=== PATIENT | male | born 1965 | race Caucasian/White ===

== ENCOUNTER 2017-03-15 16:48 | Observation (INO) | payer BC ==
[2017-03-15] MEDS ORDERED: Lopressor 25MG Tab PO ONE (16:56)
[2017-03-15] MEDS ORDERED: NITRO-BID 2% UD PACKETS TOP ONE (16:56)
[2017-03-15] MEDS ORDERED: BABY ASPIRIN 81 MG CHEW PO ONE (16:56)
[2017-03-15] MEDS ORDERED: BABY ASPIRIN 81 MG CHEW ONE (16:57)
[2017-03-15] MEDS ORDERED: Lopressor 25MG Tab ONE (16:57)
[2017-03-15] MEDS ORDERED: NITRO-BID 2% UD PACKETS ONE (16:58)
[2017-03-15] MEDS ORDERED: Sodium Chloride 0.9% 1000 ML 1,000 ML IV SCH (17:00)
--- NOTE | 2017-03-15 17:03 | ERPHSYRPT ---
- History of Present Illness Time Seen by Provider: 03/15/17 16:52 Historian: patient Exam Limitations: no limitations Physician History: CP onset at work earlier this afternoon- sitting at time; lasted 45 minutes; no prior hx; ccrampy in nature; mid substernal L to R; no SOB; no n&V; no diaphoresis; no prior hx of trauma; no fever or cough; pain 11/12- took an aleve and went away Earlier this week he had a touch of a GI bug with N,V, and D since resolved; Timing/Duration: today, hour(s) (2), sudden, improved Activities at Onset: rest (sitting at desk) Quality: cramping Location: substernal Chest Pain Radiation: no radiation Severity of Pain-Max: moderate (11/12) Severity of Pain-Current: none Modifying Factors: Improves With: other (belching) Associated Symptoms: denies symptoms Prior Chest Pain/Cardiac Workup: no prior chest pain Nitro Today/Relief: no nitro taken today, provided by ED Aspirin Treatment Today: no aspirin today, provided by ED Allergies/Adverse Reactions: No Known Drug Allergies Allergy (Unverified 03/15/17 17:08) - Review of Systems Constitutional: No Symptoms Eyes: No Symptoms Ears, Nose, & Throat: No Symptoms Respiratory: No Cough, No Dyspnea, No Wheezing Cardiac: Chest Pain, No Edema, No Palpitations, No Syncope Abdominal/Gastrointestinal: No Abdominal Pain, No Nausea, No Vomiting, No Diarrhea Genitourinary Symptoms: No Symptoms Musculoskeletal: Arthralgias (left shoulder), No Fall, No Injury Skin: No Symptoms Neurological: Dizziness (light headed), No Focal Weakness, No Headache, No Sensory Changes Psychological: No Symptoms Endocrine: No Symptoms Hematologic/Lymphatic: No Symptoms Immunological/Allergic: No Symptoms - Past Medical History Pertinent Past Medical History: Yes Cardiac History: Hypertension (not treated) GI Medical History: Other (reflux) - Past Surgical History Past Surgical History: No - Social History Smoking Status: Never smoker Exposure to second hand smoke: No Alcohol Use: Socially Drug Use: none Patient Lives Alone: No Significant Family History: heart disease - Nursing Vital Signs Nursing Vital Signs: Initial Vital Signs Temperature 97.6 F 03/15/17 16:49 Pulse Rate 65 03/15/17 16:49 Respiratory Rate 16 03/15/17 16:49 Blood Pressure 161/101 03/15/17 16:49 O2 Sat by Pulse Oximetry 95 03/15/17 16:49 Pain Scale Pain Intensity 0 - Physical Exam General Appearance: mild distress, alert Eye Exam: PERRL/EOMI, eyes nml inspection Ears, Nose, Throat Exam: normal ENT inspection, TMs normal, pharynx normal, moist mucous membranes Neck Exam: normal inspection, non-tender, supple, full range of motion, No meningismus, No carotid bruit, No JVD Respiratory Exam: normal breath sounds, lungs clear, airway intact, No chest tenderness, No respiratory distress Cardiovascular Exam: regular rate/rhythm, normal heart sounds, normal peripheral pulses, capillary refill <2 sec, No murmur, No edema Gastrointestinal/Abdomen Exam: soft, normal bowel sounds, No tenderness, No guarding, No pulsatile mass, No rebound, No organomegaly Rectal Exam: deferred Back Exam: normal inspection, normal range of motion, No CVA tenderness, No vertebral tenderness, No rash Extremity Exam: normal inspection, normal range of motion, No jessica's sign, No pedal edema Neurologic Exam: alert, oriented x 3, cooperative, data typist II-XII nml as tested, normal mood/affect, nml cerebellar function, nml station & gait, sensation nml Skin Exam: normal color, warm, dry, No rash, No cyanosis SpO2 Interpretation: normal SpO2: 98 Oxygen Delivery: Room Air - Course Nursing assessment & vital signs reviewed: Yes EKG Interpreted by Me: RATE (61), Sinus Rhythm, Right [place] Deviation, NORMAL INTERVALS, Right Bundle Branch Block (ICRBBB), Non-specific ST Changes Rhythm Strip: Rate (66), Normal Sinus Rhythm - Radiology Exams Chest X-ray Interpretation: Interpreted by me, Negative, No Pneumonia, No Pneumothorax , Nml Heart Size, No Infiltrates, Nml Mediastinum Ordered Tests: Active Orders 24 hr Category Date Time Status Bedrest with BRP/BSC ROUTINE Activity 03/15/17 17:52 Ordered Admission/Status Order ROUTINE Care 03/15/17 17:52 Ordered Call Admit Doctor for Orders ROUTINE Care 03/15/17 17:52 Ordered Seo Associate STAT Care 03/15/17 16:57 Active Code Status Order ROUTINE Care 03/15/17 17:52 Ordered EKG-ER Only STAT Care 03/15/17 16:56 Active IV Care Q6H Care 03/15/17 17:52 Ordered IV Insertion STAT Care 03/15/17 16:56 Active Implement Chest Pain Pathway ROUTINE Care 03/15/17 17:52 Ordered Pulse Oximetry (ED) STAT Care 03/15/17 16:56 Active Re-Check Vital Signs STAT Care 03/15/17 16:56 Completed Rubens Tariq, Apply ROUTINE Care 03/15/17 17:52 Ordered Telemetry ROUTINE Care 03/15/17 17:52 Ordered Weight,Daily 0600 Care 03/15/17 17:52 Ordered Cardiac Diet Diet 03/15/17 Dinner Ordered CHEST 1 VIEW (PORTABLE) Stat Exams 03/15/17 16:56 Taken CBC W DIFF Stat Lab 03/15/17 17:00 Completed CMP Stat Lab 03/15/17 17:00 Completed LIPID PROFILE AM.LAB Lab 03/16/17 04:00 Ordered PROTIME WITH INR Stat Lab 03/15/17 17:00 Completed TROPONIN Q3H Lab 03/15/17 17:00 Completed TROPONIN Q3H Lab 03/15/17 20:00 Ordered TROPONIN Q3H Lab 03/15/17 23:00 Ordered TROPONIN Q3H Lab 03/16/17 02:00 Ordered TROPONIN Q3H Lab 03/16/17 05:00 Ordered EKG Q8HX2,QAMX3,PRN RT 03/15/17 17:52 Ordered Pulse Oximetry Q4H RT 03/15/17 17:52 Ordered Transfer Order Routine Transfer 03/15/17 Ordered Medication Summary Generic Name Dose Route Start Last Admin Trade Name Freq PRN Reason Stop Dose Admin Sodium Chloride 1,000 mls @ 50 mls/hr 03/15/17 17:00 03/15/17 17:09 Sodium Chloride 0.9% 1000 Ml IV 04/14/17 16:59 50 mls/hr .Q20H TALI Administration Discontinued Medications Generic Name Dose Route Start Last Admin Trade Name Freq PRN Reason Stop Dose Admin Al Hydrox/Mg Hydrox/Simethicone Confirm 03/15/17 17:15 Maalox Es 30 Ml Unit Dose Administered 03/15/17 17:16 Dose 30 ml .ROUTE .STK-MED ONE Aspirin 324 mg 03/15/17 16:56 03/15/17 17:08 Baby Aspirin 81 Mg Chew PO 03/15/17 16:57 324 mg STAT ONE Administration Aspirin Confirm 03/15/17 16:57 Baby Aspirin 81 Mg Chew Administered 03/15/17 16:58 Dose 324 mg .ROUTE .STK-MED ONE Famotidine 40 mg 03/15/17 17:10 03/15/17 17:19 Pepcid 20 Mg PO 03/15/17 17:11 40 mg STAT ONE Administration Famotidine Confirm 03/15/17 17:13 Pepcid 20 Mg Administered 03/15/17 17:14 Dose 40 mg .ROUTE .STK-MED ONE Lidocaine HCl Confirm 03/15/17 17:14 Xylocaine Hcl Viscous * Administered 03/15/17 17:15 Dose 20 ml .ROUTE .STK-MED ONE Magnesium Hydroxide 45 ml 03/15/17 17:09 03/15/17 17:18 Gi Cocktail 45 Ml (Maalox/Lidocaine) PO 03/15/17 17:10 45 ml STAT ONE Administration Metoprolol Tartrate 25 mg 03/15/17 16:56 03/15/17 17:08 Lopressor 25mg Tab PO 03/15/17 16:57 25 mg STAT ONE Administration Metoprolol Tartrate Confirm 03/15/17 16:57 Lopressor 25mg Tab Administered 03/15/17 16:58 Dose 25 mg .ROUTE .STK-MED ONE Nitroglycerin 1 gm 03/15/17 16:56 03/15/17 17:09 Nitro-Bid 2% Ud Packets TOP 03/15/17 16:57 1 gm STAT ONE Administration Nitroglycerin Confirm 03/15/17 16:58 Nitro-Bid 2% Ud Packets Administered 03/15/17 16:59 Dose 1 gm .ROUTE .STK-MED ONE Lab/Rad Data: Laboratory Result Diagrams 03/15/17 17:00 03/15/17 17:00 Laboratory Results 03/15/17 03/15/17 03/15/17 Range/Units 17:00 17:00 17:00 WBC (4.0-10.5) K/mm3 RBC (4.1-5.6) M/mm3 Hgb (12.5-18.0) gm/dl Hct (42-50) % MCV (78-100) fl MCH (26-32) pg MCHC (32-36) g/dl RDW (11.5-14.0) % Plt Count (150-450) K/mm3 MPV (6-9.5) fl Gran % (36.0-66.0) % Lymphocytes % (24.0-44.0) % Monocytes % (0.0-12.0) % Eosinophils % (0.00-5.0) % Basophils % (0.0-0.4) % Basophils # (0-0.4) INR 1.06 (0.8-3.0) Sodium 140 (136-145) mEq/L Potassium 4.0 (3.5-5.1) mEq/L Chloride 103 (98-107) mEq/L Carbon Dioxide 28.2 (21-32) mEq/L Anion Gap 12.4 (5-15) MEQ/L BUN 12 (9-20) mg/dL Creatinine 1.03 (0.55-1.30) mg/dl Estimated GFR > 60 ML/MIN Glucose 98 (70-110) MG/DL Calcium 9.1 (8.5-10.1) mg/dL Total Bilirubin 0.60 (0.2-1.0) mg/dL AST 32 (15-37) U/L ALT 53 (12-78) U/L Alkaline Phosphatase 110 (46-116) U/L Troponin I < 0.017 (0.000-0.056) ng/ml Serum Total Protein 7.2 (6.4-8.2) gm/dL Albumin 4.4 (3.4-5.0) g/dL 03/15/17 Range/Units 17:00 WBC 4.9 (4.0-10.5) K/mm3 RBC 5.05 (4.1-5.6) M/mm3 Hgb 15.8 (12.5-18.0) gm/dl Hct 45.3 (42-50) % MCV 89.7 (78-100) fl MCH 31.3 (26-32) pg MCHC 34.9 (32-36) g/dl RDW 12.7 (11.5-14.0) % Plt Count 198 (150-450) K/mm3 MPV 11.3 H (6-9.5) fl Gran % 47.4 (36.0-66.0) % Lymphocytes % 33.8 (24.0-44.0) % Monocytes % 16.8 H (0.0-12.0) % Eosinophils % 1.6 (0.00-5.0) % Basophils % 0.4 (0.0-0.4) % Basophils # 0.02 (0-0.4) INR (0.8-3.0) Sodium (136-145) mEq/L Potassium (3.5-5.1) mEq/L Chloride (98-107) mEq/L Carbon Dioxide (21-32) mEq/L Anion Gap (5-15) MEQ/L BUN (9-20) mg/dL Creatinine (0.55-1.30) mg/dl Estimated GFR ML/MIN Glucose (70-110) MG/DL Calcium (8.5-10.1) mg/dL Total Bilirubin (0.2-1.0) mg/dL AST (15-37) U/L ALT (12-78) U/L Alkaline Phosphatase (46-116) U/L Troponin I (0.000-0.056) ng/ml Serum Total Protein (6.4-8.2) gm/dL Albumin (3.4-5.0) g/dL reviewed - Progress Progress: re-examined (after meds) Air Movement: good Progress Note: 03/15/17 17:05 ekg ICRBBB; no other abnormality; cxr pending; labs pending; will give asa, NTG and B bea and recheck and monitor 03/15/17 17:08 CXR ok; Pulse ox good; hx of reflux 03/15/17 17:28 rechecked and no return of pain; VS improving slowly; patient noted he has had acid reflux for years and this pain was totally different; CBC ok; other labs pending; will monitor and recheck 03/15/17 17:41 rechecked and Bs; lytes and renal function ok; liver and troponin ok; patient pain free; VS improving ; occasional PVC's on the monitor; will consult Dr Aceves for disposition; 03/15/17 17:50 Dr Aceves consulted and will admit for evaluation of chest pain; at bedside ; discussed results and admission Blood Culture(s) Obtained: No Antibiotics given: No Discussed with : Erasmo (consulted and will admit) Will see patient in: hospital (observation) Counseled pt/family regarding: lab results, diagnosis, need for follow-up, rad results - Departure Time of Disposition: 17:51 Departure Disposition: Observation Clinical Impression: Chest pain at rest, Hypertension Condition: Good Critical Care Time: No Referrals: BECKY ACEVES [Primary Care Provider] -
[2017-03-15 17:09] LABS: BASOPHIL % 0.4 % (0.0-0.4); Eosinophil % 1.6 % (0.00-5.0); Granulocytes % 47.4 % (36.0-66.0); Lymphocytes % 33.8 % (24.0-44.0); Mean Cell Volume 89.7 fl (78-100); Mean Corpuscular Hemoglobin 31.3 pg (26-32); Mean Platelet Volume 11.3 fl (6-9.5); Monocytes % 16.8 % (0.0-12.0); Platelet Count 198 K/mm3 (150-450); Red Blood Count 5.05 M/mm3 (4.1-5.6); Red Cell Distribution Width 12.7 % (11.5-14.0); White Blood Count 4.9 K/mm3 (4.0-10.5)
[2017-03-15] MEDS ORDERED: GI COCKTAIL 45 ML (Maalox/Lidocaine) PO ONE (17:09)
[2017-03-15] MEDS ORDERED: Pepcid 20 MG PO ONE (17:10)
[2017-03-15] MEDS ORDERED: Pepcid 20 MG ONE (17:13)
[2017-03-15] MEDS ORDERED: XYLOCAINE HCl Viscous ONE (17:14)
[2017-03-15] MEDS ORDERED: MAALOX ES 30 ML UNIT DOSE ONE (17:15)
[2017-03-15 17:17] LABS: INR 1.06 (0.8-3.0); PROTIME 11.8 SECONDS (8.83-12.87)
[2017-03-15 17:20] LABS: ALBUMIN 4.4 g/dL (3.4-5.0); ALKALINE PHOSPHATASE 110 U/L (46-116); ANION GAP 12.4 MEQ/L (5-15); BLOOD UREA NITROGEN 12 mg/dL (9-20); CHLORIDE 103 mEq/L (98-107); Carbon Dioxide 28.2 mEq/L (21-32); Glucose 98 MG/DL (70-110); SGOT/AST 32 U/L (15-37); SGPT/ALT 53 U/L (12-78); SODIUM 140 mEq/L (136-145); Total Protein 7.2 gm/dL (6.4-8.2)
[2017-03-15] MEDS ORDERED: Zofran 4 MG/2 ML VIAL IV PRN ×2 (17:52→19:12)
[2017-03-15] MEDS ORDERED: TYLENOL 325 MG PO PRN ×2 (17:52→19:12)
[2017-03-15] MEDS ORDERED: MILK OF MAGNESIA 30 ML PO PRN ×2 (17:52→19:12)
[2017-03-15] MEDS ORDERED: Senokot-S Tablet PO PRN ×2 (17:52→19:12)
[2017-03-15] MEDS ORDERED: MAALOX ES 30 ML UNIT DOSE PO PRN ×2 (17:52→19:12)
[2017-03-15] MEDS ORDERED: MORPHINE SULFATE 2 MG INJ IV PRN (19:12)
[2017-03-15] MEDS ORDERED: Phenergan 25 MG INJ IV PRN (19:12)
[2017-03-15] MEDS ORDERED: Nitrostat 0.4 MG Tablet SL PRN (19:12)
[2017-03-15] MEDS ORDERED: NITRO-BID 2% UD PACKETS TOP SCH (22:00)
[2017-03-15] MEDS ORDERED: Pepcid 20 MG VIAL IV SCH (22:00)
[2017-03-15] MEDS: Pepcid 20 MG VIAL IV SCH (22:56)
[2017-03-15] MEDS: NITRO-BID 2% UD PACKETS TOP SCH (23:03)
[2017-03-16] MEDS: NITRO-BID 2% UD PACKETS TOP SCH (05:45)
[2017-03-16 07:04] VITALS: BP 111/58; PULSE 68; O2SAT 98
--- NOTE | 2017-03-16 08:42 | XRAY ---
Indication: Chest pain. Comparison: November 21, 2014. Portable chest less inflated today and remains clear again with a few incidental calcified granulomas. Heart is not enlarged. Bony thorax intact. Impression: Nonacute chest.
--- NOTE | 2017-03-16 08:43 | PCM.HP ---
History of Present Illness - Chief Complaint Chief Complaint: Chest Pain R/O CO Date: 03/16/17 History of Present Illness: is a 51 year old male. with history of borderline diet and exercise controlled hypertension who was sitting at his desk at work yesterday and began having a pressure and cramping across the lower portion of his chest that intensified and doubled him over in pain. He went to the facility nurse and bp was reported as 180/110 and with this pain he was instructed to go to the hospital. THe pain resolved prior to arrival and lasted for 45 mins in total. He was feeling short of breath with it no palpitations and no diaphoresis. He has not experienced a pain like this in the past and no recurrence overnight. He does take 600 mg of ibuprofen twice a day for his shoulder pain and a nexium every day and drinks coffee in the am and has heartburn occasionally but it has never felt like this. He had a stress test about 7 years ago in [place] that he reports was normal. HIs father had a CO at age 42. - Review of Systems Constitutional: No Fever, No Chills Eyes: No Symptoms Ears, Nose, & Throat: No Symptoms Respiratory: No Cough, No Short Of Breath Cardiac: No Chest Pain, No Edema, No Syncope Abdominal/Gastrointestinal: No Abdominal Pain, No Nausea, No Vomiting, No Diarrhea Genitourinary Symptoms: No Dysuria Musculoskeletal: No Back Pain, No Neck Pain Skin: No Rash Neurological: No Dizziness, No Focal Weakness, No Sensory Changes Psychological: No Symptoms Endocrine: No Symptoms Hematologic/Lymphatic: No Symptoms Immunological/Allergic: No Symptoms Medications & Allergies Home Medications: Home Medication List Esomeprazole Magnesium [Nexium] 40 mg PO DAILY 03/15/17 [History Confirmed 03/15] Ibuprofen [Advil] 600 mg PO BID PRN 03/15/17 [History Confirmed 03/15/17] Allergies/Adverse Reactions: Allergies Allergy/AdvReac Type Severity Reaction Status Date / Time No Known Drug Allergies Allergy Verified 03/15/17 18:53 - Past Medical History Past Medical History: Yes Neurological History: No Pertinent History ENT History: No Pertinent History Cardiac History: Hypertension (not treated) Respiratory History: No Pertinent History, Sleep Apnea Endocrine Medical History: No Pertinent History Musculoskelatal History: Arthritis GI Medical History: GERD, Other History: No Pertinent History Pyscho-Social History: No Pertinent History Male Reproductive Disorders: No Pertinent History - Past Surgical History Past Surgical History: Yes Neuro Surgical History: No Pertinent History Cardiac History: No Pertinent History Respiratory Surgery: No Pertinent History GI Surgical History: Hernia Repair Genitourinary Surgical Hx: No Pertinent History Musculskeletal Surgical Hx: No Pertinent History Male Surgical History: Vasectomy - Social History Smoking Status: Never smoker Exposure to second hand smoke: No Alcohol: Occasionally Drug Use: none Significant Family History: heart disease (Father CO at age 42) - Physical Exam Vital Signs: Vital Signs - 24 hr Temp Pulse Pulse Resp BP Pulse Ox 03/16/17 07:01 98 F 68 20 111/58 98 03/16/17 04:00 97.8 F 70 22 114/57 95 03/16/17 00:00 98.1 F 67 17 110/59 98 03/15/17 20:00 98.1 F 67 17 110/59 98 03/15/17 19:56 98.6 F 58 L 16 130/78 96 03/15/17 19:12 95 03/15/17 18:43 98.6 F 58 L 18 130/78 96 03/15/17 17:54 98 03/15/17 17:46 69 16 137/84 96 03/15/17 17:05 65 16 156/94 96 03/15/17 16:49 97.6 F 75 65 16 161/101 95 General Appearance: no apparent distress, alert, obese Neurologic Exam: alert, oriented x 3, cooperative, normal mood/affect, nml cerebellar function, nml station & gait, sensation nml, No motor deficits Eye Exam: PERRL/EOMI, eyes nml inspection Ears, Nose, Throat Exam: normal ENT inspection, TMs normal, pharynx normal, moist mucous membranes Neck Exam: normal inspection, non-tender, supple, full range of motion Respiratory Exam: normal breath sounds, lungs clear, No respiratory distress Cardiovascular Exam: regular rate/rhythm, normal heart sounds, normal peripheral pulses Gastrointestinal/Abdomen Exam: soft, normal bowel sounds, No tenderness, No mass Back Exam: normal inspection, normal range of motion, No CVA tenderness, No vertebral tenderness Extremity Exam: normal inspection, normal range of motion, pelvis stable Skin Exam: normal color, warm, dry, No rash Lymphatic Exam: No adenopathy Results - Labs Lab/Micro Results: Lab Results-Last 24 Hours 03/15/17 03/15/17 03/16/17 Range/Units 20:35 23:15 02:10 Troponin I < 0.017 < 0.017 < 0.017 (0.000-0.056) ng/ml Triglycerides (30-200) mg/dL Cholesterol (100-200) mg/dL LDL Cholesterol (5-99) mg/dL HDL Cholesterol (35-60) mg/dL Heart Disease Risk Ratio 03/16/17 03/16/17 Range/Units 06:00 06:00 Troponin I < 0.017 (0.000-0.056) ng/ml Triglycerides 137 (30-200) mg/dL Cholesterol 104 (100-200) mg/dL LDL Cholesterol 54 (5-99) mg/dL HDL Cholesterol 35 (35-60) mg/dL Heart Disease Risk Ratio 3.0 - Radiology Impressions Radiology Exams & Impressions: Radiology Procedures Category Date Time Status ECHO W/2D AND DOPPLER [US] Routine Exams 03/16/17 08:00 Ordered - Other Procedures and Tests Respiratory Therapy 03/17/17 05:00 EKG ROUTINE 03/18/17 05:00 EKG ROUTINE 03/19/17 05:00 EKG ROUTINE Assessment/Plan (1) Shoulder pain Current Visit: Yes Status: Acute Assessment & Plan: overnight he has not had pain he has been on nitro patch and has headache his bp is low now on the nitro and had metroprolol and aspirin and lovenox last night in ED. He has had frequent PVC, Bigemminy and trigeminy on the Tele but no runs of SVT or other arrhythmia noted his EKG shows incomplete RBBB but otherwise normal and no change he remains chest pain free will get him set up with stress test and cardiology follow up start on aspirin daily and metoprolol now for bp stop ibuprofen continue nexium start diclofenac gel prn for the shoulder and moderate caffeine intake return for any new chest pain, shortness of breath, or syncope Code(s): M25.519 - PAIN IN UNSPECIFIED SHOULDER (2) Chest pain at rest Current Visit: Yes Status: Acute Code(s): R07.9 - CHEST PAIN, UNSPECIFIED (3) Hypertension Current Visit: Yes Status: Acute Code(s): I10 - ESSENTIAL (PRIMARY) HYPERTENSION (4) GERD (gastroesophageal reflux disease) Current Visit: Yes Status: Acute Code(s): K21.9 - GASTRO-ESOPHAGEAL REFLUX DISEASE WITHOUT ESOPHAGITIS
--- NOTE | 2017-03-16 08:54 | PCM.DCORD ---
- Discharge Discharge Date: 03/16/17 Disposition: Home, Self-Care Condition: Good Prescriptions: New Metoprolol Tartrate 25 mg [Lopressor 25MG Tab] 25 mg PO BID #60 tab Diclofenac Sodium Gel [Voltaren GEL] 2 g TP Q6H PRN #100 gel..gm. PRN Reason: Pain Aspirin EC 81 mg [Ecotrin 81 mg] 81 mg PO DAILY #30 Continue Esomeprazole Magnesium [Nexium] 40 mg PO DAILY Discontinued Ibuprofen [Advil] 600 mg PO BID PRN Additional Instructions: Referral to Dr. Mathew Kendrick for stress test and follow up chest pain and frequent pvcs. Follow up with: BECKY SIERRA [Primary Care Provider] - MATHEW KENDRICK MD [CONSULTING PHYSICIAN] - 1 Week Forms: Patient Portal Information
[2017-03-16] MEDS: Pepcid 20 MG VIAL IV SCH (09:28)
[2017-03-16] MEDS ORDERED: Ecotrin 325 MG PO SCH ×2 (10:00)
[2017-03-16] MEDS ORDERED: ENOXAPARIN SODIUM SQ SCH ×2 (10:00)
--- NOTE | 2017-03-20 10:10 | ECHO ---
Transthoracic echocardiographic examination and color Doppler was done on 03/16/2017. INDICATION: Chest pain. IMPRESSION: 1) NO REGIONAL WALL MOTION ABNORMALITY. ESTIMATED GLOBAL LEFT VENTRICULAR EJECTION FRACTION OF AROUND 50 TO 60%. 2) LEFT VENTRICULAR HYPERTROPHY. 3) TRACE MITRAL REGURGITATION. 4) TRACE TRICUSPID REGURGITATION. RIGHT VENTRICULAR SYSTOLIC PRESSURE OF 10 MM OF MERCURY. The left ventricle is visualized and demonstrated adequate motion of all the segments. Estimated global left ventricular ejection fraction is about 50 to 60%. There is mild left ventricular hypertrophy. The mitral valve is seen and this opens adequately. There is trace mitral regurgitation. Left atrium is normal. The aortic valve opens adequately. There is no significant gradient across the left ventricular outflow tract. The right side chambers are normal. Normal right ventricular contractility. There is trace tricuspid regurgitation. The right ventricular systolic pressure of 10 mm of Mercury.
== END 2017-03-16 09:45 | disposition home or self-care (01) ==
LOC: ED 16:48 → MED SURG 18:20
PROVIDERS: ADMIT Family Medicine; ATTEND Family Medicine
DX: R07.9 Chest pain, unspecified (principal); M25.519 Pain in unspecified shoulder; R51 Headache; I45.10 Unspecified right bundle-branch block; I10 Essential (primary) hypertension; K21.9 Gastro-esophageal reflux disease without esophagitis
CPT/HCPCS: 36000; 36415; 71010; 80053; 80061; 83721; 84484; 85025; 85610; 93005; 93041; 93268; 93306; 94760; 96360; 96361; 99285; G0378; J1650; A9270-GY

== ENCOUNTER 2020-10-07 06:57 | Day surgery (SDC) | payer BC ==
[2020-10-07] MEDS ORDERED: Sodium Chloride 0.9(Preservative Free) 10 ML IJ ONE (06:58)
[2020-10-07] MEDS ORDERED: Depo-Medrol 40 MG/ML IM ONE (06:58)
[2020-10-07] MEDS ORDERED: DIPRIVAN 200 MG/20 ML IV ONE (09:02)
--- NOTE | 2020-10-07 10:39 | XRAY ---
Indication: Right L3-L5 transforaminal BIPIN. Intraoperative fluoroscopy provided for 29 seconds. 4 digital spot image submitted for interpretation demonstrate posterior needle tips projecting over the expected right L4 and L5 nerve roots. Small amount of contrast injected for needle tip placement. Correlate with intraoperative findings/report.
--- NOTE | 2020-10-07 10:41 | XRAY ---
29 seconds fluoroscopy time in surgery for right L3-L5 transforaminal BIPIN.
[2020-10-07] MEDS ORDERED: Lactated Ringers 1,000 ML IV ONE (15:58)
== END 2020-10-07 09:25 | disposition home or self-care (01) ==
LOC: SDC-PAIN 06:57
PROVIDERS: ATTEND Psychiatry & Neurology Pain Medicine
DX: M54.16 Radiculopathy, lumbar region (principal); K21.9 Gastro-esophageal reflux disease without esophagitis; I10 Essential (primary) hypertension; G47.30 Sleep apnea, unspecified; M19.90 Unspecified osteoarthritis, unspecified site; Z79.899 Other long term (current) drug therapy
CPT/HCPCS: 72100; 77003; J1030; J2704

== ENCOUNTER 2021-05-12 09:47 | Day surgery (SDC) | payer BC ==
[2021-05-12] MEDS ORDERED: Sodium Chloride 0.9% 10 ML FLUSH Syringe IJ ONE (09:48)
[2021-05-12] MEDS ORDERED: Depo-Medrol 40 MG/ML IM ONE (09:48)
[2021-05-12] MEDS ORDERED: Lactated Ringers 1,000 ML IV ONE (11:15)
[2021-05-12] MEDS ORDERED: DIPRIVAN 200 MG/20 ML IV ONE (11:29)
--- NOTE | 2021-05-12 12:37 | XRAY ---
Indication: Right L3-S1 transforaminal BIPIN. Intraoperative fluoroscopy provided for 29 seconds. 4 digital spot image submitted for interpretation demonstrate posterior needle tips projecting over the expected right L3 and L4 nerve roots. Small amount of contrast injected for needle tip placement. Correlate with intraoperative findings/report.
--- NOTE | 2021-05-12 14:16 | XRAY ---
29 seconds of fluoroscopy was used in surgery for a right L3-S1 transforaminal BIPIN.
== END 2021-05-12 12:10 | disposition home or self-care (01) ==
LOC: SDC-PAIN 09:47
PROVIDERS: ATTEND Psychiatry & Neurology Pain Medicine
DX: M54.16 Radiculopathy, lumbar region (principal); I10 Essential (primary) hypertension; K21.9 Gastro-esophageal reflux disease without esophagitis; Z79.899 Other long term (current) drug therapy
CPT/HCPCS: 64483; 64484; 72100; 77003; J1030; J2704; Q9966

== ENCOUNTER 2022-02-10 06:40 | Day surgery (SDC) | payer BC ==
[2022-02-10] MEDS ORDERED: Lactated Ringers 1,000 ML IV SCH (07:00)
[2022-02-10] MEDS ORDERED: Xylocaine-Mpf 2% 5 Ml Vial ONE (08:32)
[2022-02-10] MEDS ORDERED: Versed 2 MG/2 ML Injection ONE (08:32)
[2022-02-10] MEDS ORDERED: DIPRIVAN 200 MG/20 ML IV ONE ×2 (08:32→08:49)
[2022-02-10 10:35] VITALS: BP 136/87; PULSE 59; O2SAT 98
--- NOTE | 2022-02-10 11:27 | OP ---
SURGERY DATE/TIME: 02/10/2022 0835 PREOPERATIVE DIAGNOSIS: Due for colorectal cancer screening. POSTOPERATIVE DIAGNOSIS: Mild diverticulosis. PROCEDURE: Colonoscopy. SURGEON: Pawel Caldwell M.D. ANESTHESIA: IV anesthesia. PATIENT CONDITION: Stable. COMPLICATIONS: None. SPECIMEN: None. HISTORY: The patient is a 56-year-old male that is due for screening colonoscopy. Average risks discussed with the patient and he elected to proceed with colonoscopy. FINDINGS: Good preparation. A few small diverticula in the sigmoid otherwise normal exam. DESCRIPTION OF PROCEDURE: The patient was brought to endoscopy suite. He is routinely positioned and prepared. Time out performed. External exam is normal. Digital rectal exam is normal except for slightly prominent prostate. The scope is introduced and advanced to the terminal ileum. The preparation of area checked good. The withdrawal time was greater than six minutes. There was excellent evaluation throughout the colon. There were just a few small diverticula in the sigmoid colon. Retroflexion is normal. The patient tolerated the procedure well. He was taken to recovery in stable condition. RECOMMENDATIONS: Next colonoscopy will be ten years for screening purposes.
== END 2022-02-10 10:46 | disposition home or self-care (01) ==
LOC: SDC 06:40
PROVIDERS: ATTEND Surgery
DX: Z12.11 Encounter for screening for malignant neoplasm of colon (principal); K57.30 Diverticulosis of large intestine without perforation or abscess without bleeding; I10 Essential (primary) hypertension
CPT/HCPCS: 93005; J2250; J2704

== ENCOUNTER 2022-03-30 09:48 | Day surgery (SDC) | payer BC ==
[2022-03-30] MEDS ORDERED: Depo-Medrol 40 MG/ML IM ONE ×2 (09:49)
[2022-03-30] MEDS ORDERED: LIDOCAINE HCL 2% 100 MG/5 ML IJ ONE (09:49)
[2022-03-30] MEDS ORDERED: Sodium Chloride 0.9(Preservative Free) 10 ML IJ ONE (09:49)
[2022-03-30 11:05] LABS: ANION GAP 9.8 MEQ/L (5-15); BLOOD UREA NITROGEN 18 mg/dL (9-20); CHLORIDE 107 mmol/L (98-107); Carbon Dioxide 26 mmol/L (22-30); Creatinine 1 1.09 mg/dL (0.66-1.25); EST GLOMERULAR FILTRATION RATE > 60.0 ML/MIN; Glucose 99 mg/dL (74-106); MAGNESIUM 1.9 mg/dL (1.6-2.3); Potassium 4.4 mmol/L (3.5-5.1); SODIUM 138 mmol/L (137-145)
[2022-03-30] MEDS ORDERED: DIPRIVAN 200 MG/20 ML IV ONE (11:57)
[2022-03-30] MEDS ORDERED: Lactated Ringers 1,000 ML IV ONE (13:07)
--- NOTE | 2022-03-30 14:15 | XRAY ---
Indication: Left L3-L5 transforaminal BIPIN. Intraoperative fluoroscopy provided for 25 seconds. 4 digital spot image submitted for interpretation demonstrates posterior needle tips projecting over the expected left L3 and L4 nerve roots. Small amount of contrast injected for needle tip placement. Correlate with intraoperative findings/report.
--- NOTE | 2022-03-30 14:19 | XRAY ---
25 seconds of fluoroscopy was used in surgery for a left L3-L5 transforaminal BIPIN.
== END 2022-03-30 12:19 | disposition home or self-care (01) ==
LOC: SDC-PAIN 09:48
PROVIDERS: ATTEND Psychiatry & Neurology Pain Medicine
DX: M54.16 Radiculopathy, lumbar region (principal); I10 Essential (primary) hypertension; Z79.899 Other long term (current) drug therapy
CPT/HCPCS: 36415; 64483; 64484; 72100; 77003; 80048; 83735; 93005; J1030; J2704; Q9966

== ENCOUNTER 2023-10-25 07:13 | Day surgery (SDC) | payer BC ==
[2023-10-25] MEDS ORDERED: Xylocaine-Mpf 2% 5 Ml Vial IJ ONE (07:14)
[2023-10-25] MEDS ORDERED: Depo-Medrol 40 MG/ML IM ONE (07:14)
[2023-10-25] MEDS ORDERED: DIPRIVAN 200 MG/20 ML IV ONE (08:56)
[2023-10-25] MEDS ORDERED: Lactated Ringers 1,000 ML IV ONE (09:15)
--- NOTE | 2023-10-25 10:12 | XRAY ---
Indication: Bilateral L4-S1 MBB. Intraoperative fluoroscopy provided for 10 seconds. Single digital spot image submitted for interpretation demonstrates posterior needle tips projecting over the expected left and right L4-S1 nerve roots. Correlate with intraoperative findings/report.
--- NOTE | 2023-10-25 12:06 | XRAY ---
10 seconds of fluoroscopy was used in surgery for a bilateral L4-S1 MBB.
== END 2023-10-25 09:30 | disposition home or self-care (01) ==
LOC: SDC-PAIN 07:13
PROVIDERS: ATTEND Psychiatry & Neurology Pain Medicine
DX: M47.816 Spondylosis without myelopathy or radiculopathy, lumbar region (principal); E11.9 Type 2 diabetes mellitus without complications
CPT/HCPCS: 64493; 64494; 72020; 77002; 82947; J1010; J2704

== ENCOUNTER 2024-03-20 10:04 | Day surgery (SDC) | payer BC ==
[2024-03-20] MEDS ORDERED: BUPIVACAINE 0.5% VIAL IJ ONE (10:05)
[2024-03-20] MEDS ORDERED: Depo-Medrol 40 MG/ML IM ONE (10:05)
[2024-03-20] MEDS ORDERED: DIPRIVAN 200 MG/20 ML IV ONE (11:53)
--- NOTE | 2024-03-20 13:42 | XRAY ---
Indication: Bilateral L4-S1 MBB. Intraoperative fluoroscopy provided for 14 seconds. Single digital spot image submitted for interpretation demonstrates posterior needle tips projecting over the expected left and right L4-S1 nerve roots. Correlate with intraoperative findings/report.
--- NOTE | 2024-03-20 13:53 | XRAY ---
14 seconds of fluoroscopy was used in surgery for a bilateral L4-S1 MBB.
== END 2024-03-20 11:55 | disposition home or self-care (01) ==
LOC: SDC-PAIN 10:04
PROVIDERS: ATTEND Psychiatry & Neurology Pain Medicine
DX: M47.816 Spondylosis without myelopathy or radiculopathy, lumbar region (principal); R73.03 Prediabetes
CPT/HCPCS: 64493; 64494; 72020; 77002; 82947; J2704

== ENCOUNTER 2024-05-16 08:49 | Day surgery (SDC) | payer BC ==
[2024-05-16] MEDS ORDERED: LIDOCAINE HCL 1% AMPUL 5 ML IJ ONE (08:50)
[2024-05-16] MEDS ORDERED: Depo-Medrol 40 MG/ML IM ONE (08:50)
[2024-05-16] MEDS ORDERED: BUPIVACAINE 0.5% VIAL IJ ONE (08:50)
[2024-05-16] MEDS ORDERED: DIPRIVAN 200 MG/20 ML IV ONE (10:06)
--- NOTE | 2024-05-16 10:58 | XRAY ---
Indication: Right L4-S1 RFA. Intraoperative fluoroscopy provided for 25 seconds. 4 digital spot image submitted for interpretation demonstrates posterior needle tips projecting over the expected right L4-S1 nerve roots. Correlate with intraoperative findings/report.
--- NOTE | 2024-05-16 12:21 | XRAY ---
25 seconds of fluoroscopy was used in surgery for a right L4-S1 RFA.
== END 2024-05-16 10:50 | disposition home or self-care (01) ==
LOC: SDC-PAIN 08:49
PROVIDERS: ATTEND Psychiatry & Neurology Pain Medicine
DX: M47.816 Spondylosis without myelopathy or radiculopathy, lumbar region (principal); R73.03 Prediabetes
CPT/HCPCS: 64635; 64636; 72100; 77002; 82947; 93005; J2704

== ENCOUNTER 2024-05-22 08:27 | Day surgery (SDC) | payer BC ==
[2024-05-22] MEDS ORDERED: LIDOCAINE HCL 1% AMPUL 5 ML IJ ONE (08:28)
[2024-05-22] MEDS ORDERED: Depo-Medrol 40 MG/ML IM ONE (08:28)
[2024-05-22] MEDS ORDERED: BUPIVACAINE 0.5% VIAL IJ ONE (08:28)
[2024-05-22] MEDS ORDERED: DIPRIVAN 200 MG/20 ML IV ONE (10:32)
--- NOTE | 2024-05-22 12:27 | XRAY ---
Indication: Left L4-S1 RFA. Intraoperative fluoroscopy was provided for 20 seconds. 3 digital spot images submitted for interpretation demonstrates posterior needle tips projecting over expected left L4-S1 nerve roots. Correlate with intraoperative findings/report.
--- NOTE | 2024-05-22 12:52 | XRAY ---
20 seconds of fluoroscopy was in surgery for a left L4-S1 RFA.
== END 2024-05-22 11:06 | disposition home or self-care (01) ==
LOC: SDC-PAIN 08:27
PROVIDERS: ATTEND Psychiatry & Neurology Pain Medicine
DX: M47.817 Spondylosis without myelopathy or radiculopathy, lumbosacral region (principal); R73.03 Prediabetes
CPT/HCPCS: 72100; 77002; 82947; J2704

== ENCOUNTER 2024-09-25 08:00 | Day surgery (SDC) | payer BC ==
[2024-09-25] MEDS ORDERED: Sodium Chloride 0.9(Preservative Free) 10 ML IJ ONE (08:01)
[2024-09-25] MEDS ORDERED: dexAMETHasone sodium phosphate IJ ONE (08:01)
[2024-09-25] MEDS ORDERED: propofoL IV ONE (09:37)
[2024-09-25] MEDS ORDERED: Lactated Ringers 1,000 ML IV ONE (10:18)
--- NOTE | 2024-09-25 10:24 | XRAY ---
Indication: Right L2-L4 transforaminal BIPIN. Intraoperative fluoroscopy provided for 21 seconds. 4 digital spot images submitted for interpretation demonstrates posterior needle tips projecting over expected right L2 and L3 nerve roots. Small amount of contrast injected for needle tip placement. Correlate with operative findings/report.
--- NOTE | 2024-09-25 11:06 | XRAY ---
21 seconds of fluoroscopy used in surgery for a right L2-L4 transforaminal BIPIN.
== END 2024-09-25 10:07 | disposition home or self-care (01) ==
LOC: SDC-PAIN 08:00
PROVIDERS: ATTEND Psychiatry & Neurology Pain Medicine
DX: M54.16 Radiculopathy, lumbar region (principal); R73.03 Prediabetes
CPT/HCPCS: 64483; 64484; 72100; 82947; J1100; J2704; Q9966